=== PATIENT | male | born 1960 | race Caucasian/White ===

== ENCOUNTER → 2017-01-29 | Outpatient (CLI) | payer MEDICARE ==
--- NOTE | 2017-01-29 10:28 | MR ---
EXAMINATION TYPE: MR cervical spine wo con DATE OF EXAM: 01/29/2017 COMPARISON: NONE HISTORY: Cervicalgia TECHNIQUE: Multiplanar, multisequence images of the cervical spine were acquired. C2-C3: No evidence for degenerative disc disease. No disc bulge/herniation or protrusion. No Canal stenosis. Foramina are patent bilaterally. C3-C4: No evidence for degenerative disc disease. No disc bulge/herniation or protrusion. No Canal stenosis. Foramina are patent bilaterally. C4-C5: Broad-based disc bulge has mild anterior thecal sac compression. This is no cord contact. No s esperanza canal stenosis present. Moderate right and mild left foraminal narrowing is present. C5-C6: There is a subligamentous disc herniation which appears broad-based with moderate anterior the keanu sac compression. This has anterior cord contact. More central focal protrusion is present with co rd contact. Mild cord deformity at the disc herniation may be present. AP spinal canal stenosis is no t present. Moderate bilateral foraminal stenosis is present. C6-C7: Broadbase subligamentous disc herniation is present with moderate anterior thecal sac compress ion. This is in close approximation with the spinal cord. No cord deformity is evident. No AP spinal canal stenosis present. Moderate bilateral foraminal narrowing is present. C7-T1: Mild disc bulge is present with mild anterior thecal sac compression. No AP spinal canal steno sis or neural foraminal stenosis is present. Cervical segments are intact. There is normal alignment. Cervical spinal cord is of normal signal. Craniovertebral junction relationships are within normal limits. IMPRESSION: 1. Central disc herniation with associated broad-based disc bulging C5-6 with cord contact and mild c ord deformity. 2. Broad-based disc bulge with possible cord contact without cord deformity. No stenosis is present C 6-7. 3. Mild disc bulge with moderate anterior thecal sac compression. No cord contact is evident at C7-T1
== END | disposition home or self-care (01) ==
LOC: RADMRIMAIN 07:26
PROVIDERS: ATTEND Psychiatry & Neurology Neurology
DX: M50.222 Other cervical disc displacement at C5-C6 level (principal); G95.89 Other specified diseases of spinal cord
CPT/HCPCS: 72141

== ENCOUNTER → 2024-01-13 | Outpatient (CLI) | payer MEDICARE ==
--- NOTE | 2024-02-01 16:02 | US ---
Site ID [facility] Patient Adolph Maza ID [id number] Age/Gender: 63Y, M Order # N/[id number] Procedure US aorta Date 01/13/2024 8:53:00 AM EXAMINATION TYPE: US duplex aorta DATE OF EXAM: 01/28/2024 COMPARISON: NONE CLINICAL INDICATION: Male, 63 year old with history of aortic screening. TECHNIQUE: Multiple sonographic images of the abdominal aorta are obtained. FINDINGS: EXAM MEASUREMENTS: Abdominal Aorta: Proximal: Obscured by overlying bowel gas Mid: 1.9 x 2.2 centimeters Distal: 1.8 x 2.0 cm Bifurcation: Obscured by overlying bowel gas DIP GUIDER STOVES NOTES: Proximal aorta obscured by overlying bowel gas. Bifurcation obscured by overlying midline bowel gas. The mid and distal portions are within normal limits. IMPRESSION: No visualized abdominal aortic aneurysm however the proximal aorta and aortic bifurcation are obscure d by overlying bowel gas.
== END | disposition home or self-care (01) ==
LOC: RADUSWWP 12:00
PROVIDERS: ATTEND Internal Medicine
DX: Z13.6 Encounter for screening for cardiovascular disorders (principal)
CPT/HCPCS: 76706